=== PATIENT | male | born 1995 | race Caucasian/White ===

== ENCOUNTER 2020-01-31 23:25 | Emergency (ER) | payer MEDICAID ==
[~2020-01-31] VITALS: Ht 167.6 cm; Wt 93.9 kg
[2020-01-31 23:26] VITALS: Ht 167.6 cm; Wt 93.9 kg
[2020-02-01 00:02] VITALS: BP 145/88
== END 2020-02-01 00:02 | disposition home or self-care (01) ==
LOC: ED 23:25
DX: S61.217A Laceration without foreign body of left little finger without damage to nail, initial encounter (principal); W25.XXXA Contact with sharp glass, initial encounter; Y93.89 Activity, other specified; Y92.89 Other specified places as the place of occurrence of the external cause; Y99.8 Other external cause status
CPT/HCPCS: J2001